=== PATIENT | female | born 1940 | race Caucasian/White ===

== ENCOUNTER 2018-11-19 09:13 | Day surgery (SDC) | payer MEDICARE, OTHER ==
[2018-11-18 11:37] LABS: HEMATOCRIT 38.3 % (36.0-48.0); HEMOGLOBIN 12.9 g/dL (12-16); MCH 30.8 pg (26.0-34.0); MCHC 33.7 g/dL (31.0-37.0); MCV 91.4 fL (80.0-100.0); MEAN PLATELET VOLUME 10.4 fL (7.4-10.4); RBC 4.19 10x6/uL (4.00-5.40); RDW 13.5 % (11.5-14.5); WBC 6.1 10x3/uL (4.8-10.8)
[~2018-11-19] VITALS: Ht 172.7 cm; Wt 77.1 kg
[2018-11-19 05:35] VITALS: BP 123/78; Ht 172.7 cm; Wt 77.1 kg
--- NOTE | 2018-11-19 08:10 | NUR ---
REC'D FROM [facility]. NO FAMILY CURRENTLY AT BEDSIDE. DRESSING CDI. ORANGE JUICE BROUGHT TO PT.
[~2018-11-19 09:13] MED LIST: DURICEF500 MG PO; HYDROCODON-ACE1 EAC7 PO
--- NOTE | 2018-11-19 09:34 | OP ---
PATIENT NAME: ADRYAN MURPHY MEDICAL RECORD: [id number] :42 LOCATION:[facility] ADMISSION DATE: SURGEON: BENITO COLLINS DO DATE OF OPERATION: 11/19/2018 PROCEDURE PERFORMED: Right endoscopic carpal tunnel release. PREOPERATIVE DIAGNOSIS: Right carpal tunnel syndrome. POSTOPERATIVE DIAGNOSIS: Right carpal tunnel syndrome. INDICATIONS: Ms. Murphy is a 78-year-old female who has had right hand numbness and tingling, waking her up at night for quite some time. She had a nerve conduction study, which demonstrated a distal motor latency of 5.9 of the median nerve, indicating she had carpal tunnel syndrome. I informed her that we could do a carpal tunnel release, but she may not get all the feeling back, but it should resolve the pain in the first 3 fingers that she is having. She was okay with that. She was also aware of the risk of damage to the median nerve, any other nerves in the area, palmar cutaneous branch of the median nerve and she signed the consent, as well as the risk of infection and bleeding. SURGEON: Benito Collins DO DESCRIPTION OF PROCEDURE: The patient was taken to the operative suite, given a gram of Ancef preoperatively. The right upper extremity was prepped and draped in a sterile fashion. LMA was placed. A timeout was performed, everyone was in agreement with the correct side, site, patient and procedure. The incision then began just at the wrist crease of the right wrist, centered over the palmaris longus tendon. Incision was made with a 15 blade. Once the skin was incised, the 2 Ragnells were used to bluntly dissect down to the carpal tunnel. The forearm fascia was released from distal to proximal at the site and then the carpal tunnel was entered with the dilators in the palm of the hand. Once they were dilated up, the SegWay sheath was put in, protecting the median nerve and the camera was brought in, viewing the transverse carpal ligament and only the transverse carpal ligament. The probe and rasp were then used to clean it off and ensuring there was nothing going through the ligament. The blade was then brought in and raised up, and under direct visualization with the camera it was released from [id number] and fat herniating down into the carpal tunnel. This was then removed and then any remaining fibers were , done under loupe visualization with a pickup and scissors. The tourniquet was inflated prior to starting exsanguinating the right upper extremity to 250 mmHg and it was up for 10 minutes, it was let down at the time once that was finished releasing completely the ligament, any fibers that remained and the site was injected with 10 mL of 0.25% Marcaine with epinephrine around the incision and up into the palm. There was very minimal bleeding. The incision was then closed by Jessica Victoria who was my first mate with a 5-0 Monocryl in an inverted interrupted fashion. A Steri-Strip was placed over the wound. Adaptic, 4 x 4s, Kerlix, and Coban was lightly wrapped on the hand and wrist to hold it in place. The patient was awakened and taken to recovery in stable condition. Blood loss was minimal. COMPLICATIONS: None. TRANSINT:[id number] Voice Confirmation ID: [id number] DOCUMENT ID: [id number] OPERATIVE REPORT [id number] ADRYAN MURPHY,BENITO Stone DO at 0934 CC: [id number] DICTATION DATE: 11/19/18 0746 POSTAL CLERK: 11/19/18 0901 [facility] [address] [place] [address]
== END 2018-11-19 09:15 | disposition home or self-care (01) ==
LOC: D.OPS 09:13 → D.PAN 09:15
PROVIDERS: Anesthesiology; ATTEND Orthopaedic Surgery
DX: G56.01 Carpal tunnel syndrome, right upper limb (principal); Z01.812 Encounter for preprocedural laboratory examination

== ENCOUNTER → 2019-08-12 12:19 | Outpatient (CLI) | payer MEDICARE, OTHER ==
[2018-11-19 05:35] VITALS: BMI 25.9
== END | disposition home or self-care (01) ==
LOC: D.RAD 12:19
PROVIDERS: ATTEND Internal Medicine Gastroenterology
DX: R13.12 Dysphagia, oropharyngeal phase (principal)